=== PATIENT | male | born 1980 | race Caucasian/White ===

== ENCOUNTER 2022-10-08 10:30 | Inpatient (IN) | payer BC ==
[~2022-10-08] VITALS: Ht 170.2 cm; Wt 93.0 kg
--- NOTE | 2022-10-08 10:35 | NUR ---
Patient came in to the er c/o chest pain while sitting at work. On room air, breathing evenly and unlabored. Connected to the monitor and pulse ox. Kept comfortable, will continue to monitor accordingly.
[2022-10-08] MEDS ORDERED: IV NS 0.9% 1,000 ML BAG IV ONE (11:30)
[2022-10-08] MEDS ORDERED: IV NS 0.9% 250 ML IV ONE ×2 (11:31→14:10)
[2022-10-08] MEDS ORDERED: IOHEXOL-350 100 ML VIAL IV ONE ×2 (11:31→14:10)
[2022-10-08] MEDS ORDERED: CT SWABBABLE VALVE TRANS SET 1 EA INFUS.SET MC ONE (11:31)
[2022-10-08 11:41] LABS: MONOCYTES % (AUTO) 5.3 % (2.0-12.0)
[2022-10-08 11:57] LABS: CALCIUM, SERUM 7.8 mg/dL (8.5-10.1); CARBON DIOXIDE 18 mmol/L (21-32); CHLORIDE 91 mmol/L (98-107); CREATININE 1.6 mg/dL (0.6-1.3); GLUCOSE 243 mg/dL (74-106); POTASSIUM 3.2 mmol/L (3.5-5.1); SODIUM SERUM 129 mmol/L (136-145); UREA NITROGEN, BLOOD 18 mg/dL (7-18)
[2022-10-08] MEDS ORDERED: ONDANSETRON HCL/PF - ER 4 MG/2 ML VIAL IV ONE (12:00)
[2022-10-08] MEDS ORDERED: MORPHINE SULFATE INJ 2 MG/ML DISP.SYRIN IV ONE (12:00)
[2022-10-08] MEDS ORDERED: ONDANSETRON HCL/PF 4 MG/2 ML VIAL ONE (12:05)
[2022-10-08] MEDS ORDERED: MORPHINE SULFATE INJ 4 MG/ML DISP.SYRIN ONE (12:05)
[2022-10-08 12:10] LABS: BASOPHILS % (AUTO) 0.1 % (0.0-2.0); EOSINOPHILS % (AUTO) 0.1 % (0.0-6.0); HEMATOCRIT 46 % (39-51); HEMOGLOBIN 15.9 g/dL (13.5-17.5); LYMPHOCYTES # (AUTO) 0.4 K/uL (0.8-4.8); LYMPHOCYTES % (AUTO) 2.8 % (20.0-44.0); MEAN CORPUSCULAR HGB CONC 34 g/dl (31.0-36.0); MEAN CORPUSCULAR VOLUME 92 fL (80-96); MONOCYTES # (AUTO) 0.7 K/uL (0.1-1.30); NEUTROPHILS # (AUTO) 12.6 K/uL (1.8-8.9); NEUTROPHILS % (AUTO) 91.7 % (43.0-81.0); PLATELET COUNT (AUTO) 153 K/uL (150-450); RED BLOOD CELL COUNT(AUTO) 5.02 MIL/uL (4.5-6.0); WHITE BLOOD COUNT (AUTO) 13.7 K/uL (4.3-11.0)
--- NOTE | 2022-10-08 12:11 | NUR ---
wheeled patient to ct
[2022-10-08] MEDS ORDERED: IV PREMIX NS + 40 MEQ KCL 1 L IV PRN (12:30)
[2022-10-08] MEDS ORDERED: INSULIN REGULAR, HUMAN 100 UNITS in IV NS 0.9% 100 ML IV PRN ×2 (12:30)
[2022-10-08 12:43] LABS: ABG BASE EXCESS -2.3 mmol/L; ABG PCO2 26.1 mmHg (35.0-45.0); ABG PH 7.477 (7.350-7.450); ABG PO2 76.7 mmHg (75.0-100.0); COHb 0.3 % (0.5-1.5); MetHb 0.6 % (0.0-1.5); O2Hb 95.3 % (94.0-97.0); SITE, ABG Left Radial; VENT MODE, BG ROOM AIR
--- NOTE | 2022-10-08 12:54 | NUR ---
covid swab collected and sent to lab.
[2022-10-08] MEDS ORDERED: ALPR2TAB7 PO (13:02)
[2022-10-08] MEDS ORDERED: MIRT-91 PO (13:02)
[2022-10-08] MEDS ORDERED: DISU250T7 PO (13:02)
[2022-10-08] MEDS ORDERED: BREX1TAB PO (13:02)
[2022-10-08 13:37] LABS: CALCIUM, SERUM 6.9 mg/dL (8.5-10.1); CREATININE 1.3 mg/dL (0.6-1.3); MAGNESIUM 1.7 mg/dL (1.8-2.4); PHOSPHORUS 1.7 mg/dL (2.5-4.9); POTASSIUM 3.8 mmol/L (3.5-5.1)
[2022-10-08 15:22] LABS: CALCIUM, SERUM 6.2 mg/dL (8.5-10.1); CREATININE 1.5 mg/dL (0.6-1.3); MAGNESIUM 1.6 mg/dL (1.8-2.4); PHOSPHORUS 1.5 mg/dL (2.5-4.9); POTASSIUM 3.9 mmol/L (3.5-5.1)
--- NOTE | 2022-10-08 15:25 | NUR ---
room 262
[2022-10-08] MEDS ORDERED: Magnesium 1GM/D5W 100ML PREMIX 200 ML IV ONE (16:04)
[2022-10-08] MEDS: Magnesium 1GM/D5W 100ML PREMIX 100 ML IV SCH ×2 (16:09→17:40)
[2022-10-08] MEDS ORDERED: DEXTROSE 50%-WATER 50 ML DISP.SYRIN IV PRN (16:30)
[2022-10-08] MEDS ORDERED: ONDANSETRON HCL/PF 4 MG/2 ML VIAL IVP PRN (16:30)
[2022-10-08] MEDS ORDERED: Sodium Phosphate 30 MMOL in IV NS 0.9% 250 ML IV SCH (17:00)
--- NOTE | 2022-10-08 17:31 | NUR ---
GOT BED 313-2
[2022-10-08] MEDS: BLOOD SUGAR DIAGNOSTIC 1 EACH STRIP IN SCH ×2 (18:00→23:41)
[2022-10-08 18:24] LABS: CALCIUM, SERUM 6.8 mg/dL (8.5-10.1); CREATININE 1.4 mg/dL (0.6-1.3); MAGNESIUM 2.3 mg/dL (1.8-2.4); PHOSPHORUS 1.6 mg/dL (2.5-4.9); POTASSIUM 4.4 mmol/L (3.5-5.1)
--- NOTE | 2022-10-08 18:30 | NUR ---
wheeled patient via gurney accompanied by RN and emt in no distress. RN assigned at [facility] to assume care.
--- NOTE | 2022-10-08 19:20 | NUR ---
ADMISSION 42 y/o male Alert Oriented x4. Skin checked done, skin intact. GAY midline intact. [place] to room, unit, staff. Abdomen rounded, soft, reports pain tolerable at this time. Will cont to monitor.
[2022-10-08 20:00] VITALS: BP 130/97
[2022-10-08] MEDS: MORPHINE SULFATE INJ 2 MG/ML DISP.SYRIN IV SCH ×2 (20:19→21:00)
--- NOTE | 2022-10-08 21:53 | NUR ---
ACCU CHECK AT 1800 Received patient after 1900. Will check bld glucose at 0000.
[2022-10-08] MEDS: IV NS 0.9% 1,000 ML IV PRN (22:12)
--- NOTE | 2022-10-08 22:20 | NUR ---
MORPHINE IV NON ADMINISTERED 2100 morphine dose non administered, dose too close from last administration at 2018. Patient no c/o pain at this time,
[2022-10-08] MEDS: INSULIN REGULAR, HUMAN 100 UNIT/ML 3 ML VIAL SQ PRN (23:46)
--- NOTE | 2022-10-08 23:47 | NUR ---
ACCU CHECK Bld glucose 174mg/dl.Given insulin per SS parameters co-signed by FERNANDO Johnston.
[2022-10-09] MEDS: MORPHINE SULFATE INJ 2 MG/ML DISP.SYRIN IV SCH
--- NOTE | 2022-10-09 01:05 | NUR ---
NEW ORDER PAIN MEDICATION Patient on Morphine IV q3H routine, was given once for abdomen pain in the last 5 hours. Patient reports no pain at this time, pain tolerable. Notified [facility] LAB TECHNICIAN Renny with new order Morphine IV q3H PRN, dc routine dose.
[2022-10-09] MEDS: IV NS 0.9% 1,000 ML IV PRN ×3 (02:28→15:29)
[2022-10-09] MEDS: MORPHINE SULFATE INJ 2 MG/ML DISP.SYRIN IV PRN ×5 (03:26→22:22)
--- NOTE | 2022-10-09 03:27 | NUR ---
ABDOMEN PAIN Patient ambulated to the bathroom, voided urine. Back to bed, c/o abdomen pain 07/10. Denies N/V. Given IV Morphine, will reassess pain level.
[2022-10-09] MEDS: INSULIN REGULAR, HUMAN 100 UNIT/ML 3 ML VIAL SQ PRN ×3 (06:01→22:13)
[2022-10-09] MEDS: BLOOD SUGAR DIAGNOSTIC 1 EACH STRIP IN SCH ×4 (06:02→22:15)
--- NOTE | 2022-10-09 06:03 | NUR ---
ACCU CHECK Bld glucose 171mg/dl.Given insulin per SS parameters co-signed by FERNANDO Johnston.
[2022-10-09 06:34] LABS: BASOPHILS % (AUTO) 0.1 % (0.0-2.0); EOSINOPHILS % (AUTO) 0.1 % (0.0-6.0); HEMATOCRIT 48 % (39-51); HEMOGLOBIN 16.3 g/dL (13.5-17.5); LYMPHOCYTES # (AUTO) 0.7 K/uL (0.8-4.8); LYMPHOCYTES % (AUTO) 5.6 % (20.0-44.0); MEAN CORPUSCULAR HGB CONC 34 g/dl (31.0-36.0); MEAN CORPUSCULAR VOLUME 94 fL (80-96); MONOCYTES # (AUTO) 0.7 K/uL (0.1-1.30); MONOCYTES % (AUTO) 4.9 % (2.0-12.0); NEUTROPHILS # (AUTO) 11.9 K/uL (1.8-8.9); NEUTROPHILS % (AUTO) 89.3 % (43.0-81.0); PLATELET COUNT (AUTO) 161 K/uL (150-450); RED BLOOD CELL COUNT(AUTO) 5.11 MIL/uL (4.5-6.0); WHITE BLOOD COUNT (AUTO) 13.3 K/uL (4.3-11.0)
--- NOTE | 2022-10-09 06:38 | NUR ---
END OF SHIT REPORT Patient in bed, Alert Oriented x4. NPO. On IVF infusing. Afebrile throughout shift. Abdomen pain controlled with IV Morphine, denies N/V. Independent with ambulation. Stable on RA. Will endorse to oncoming RN.
[2022-10-09 06:46] LABS: CARBON DIOXIDE 18 mmol/L (21-32); CHLORIDE 102 mmol/L (98-107); GLUCOSE 150 mg/dL (74-106); MAGNESIUM 2.1 mg/dL (1.8-2.4); PHOSPHORUS 1.4 mg/dL (2.5-4.9); POTASSIUM 3.9 mmol/L (3.5-5.1); SODIUM SERUM 133 mmol/L (136-145); UREA NITROGEN, BLOOD 23 mg/dL (7-18)
[2022-10-09 07:00] VITALS: BP 161/107
[2022-10-09 07:09] LABS: CALCIUM, SERUM 5.5 mg/dL (8.5-10.1)
--- NOTE | 2022-10-09 07:15 | NUR ---
CRITICAL VALUE 0709 May/lab reported Critical value Calcium 5.5. Endorse to FERNANDO Sweeney, f/u with am team.
--- NOTE | 2022-10-09 07:27 | NUR ---
MS RN OPENING NOTE RECEIVED PT AWAKE AND RESTING IN BED. PT A/O X4, ABLE TO MAKE NEEDS KNOWN. ON ROOM AIR, TOLERATING WELL. NO SOB NOTED. NOT IN ANY SIGN OF RESPIRATORY DISTRESS. IV ACCESS IN GAY MIDLINE INTACT AND PATENT WITH NS INFUSING AT 250ML/HR. SAFETY MEASURES IN PLACE: BED IN LOWEST AND LOCKED POSITION, SIDE RAILS UPX2, AND CALL LIGHT WITHIN REACH. WILL CONTINUE TO MONITOR PT.
--- NOTE | 2022-10-09 07:35 | NUR ---
RN NOTE NIGHT NURSE FERNANDO MEADE ENDORSED OF CRITICAL LAB VALUE OF CALCIUM LEVEL OF 5.5. CALLED DR. ADITYA BROOKS AND LEFT MESSAGE. AWAITING FOR A CALL BACK.
--- NOTE | 2022-10-09 07:45 | NUR ---
RN NOTE RECEIVED A CALL BACK FROM DR. BROKOS IN REGARDS TO CRITICAL VALUE OF CALCIUM 5.5 WITH ORDERS TO GIVE CALCIUM GLUCONATE 2GM IV. ORDERS CARRIED OUT.
[2022-10-09] MEDS ORDERED: Calcium Gluconate 1GM/10ML 9.3 MEQ in IV NS 0.9% 100 ML IV ONE (08:00)
[2022-10-09] MEDS: PANTOPRAZOLE 40 MG VIAL IV SCH (08:18)
[2022-10-09] MEDS ORDERED: Calcium Gluconate 0.465 MEQ/ML VIAL IV SCH (08:30)
[2022-10-09 10:32] LABS: LIPASE > 1000 U/L (73-393)
[2022-10-09] MEDS ORDERED: Sodium Phosphate 30 MMOL in IV NS 0.9% 250 ML IV SCH (11:00)
[2022-10-09 13:07] LABS: HDL CHOLESTEROL 21 mg/dL (40-60); LDL 55 mg/dL (0-99); TRIGLYCERIDES 350 mg/dL (30-150)
--- NOTE | 2022-10-09 13:07 | NUR ---
RN NOTE PT WAS SEEN BY DR. BROOKS WITH NEW ORDER TO DC CURRENT DIET ORDER AND START PT ON CLEAR LIQUID DIET. ORDERS CARRIED OUT.
[2022-10-09 15:54] LABS: CHOLESTEROL 140 mg/dL (<200)
[2022-10-09 16:40] LABS: BAND % (MANUAL) 7 % (0.0-5.0); BASOPHILS % (MANUAL) 0 % (0.0-2.0); EOSINOPHILS % (MANUAL) 0 % (0-4); LYMPHOCYTES % (MANUAL) 9 % (16-48); MONOCYTES % (MANUAL) 3 % (0-11.0); NEUTROPHILS % (MANUAL) 81 (42-76)
--- NOTE | 2022-10-09 17:45 | NUR ---
RN NOTE RECEIVED AN ORDER FROM DR. BROOKS TO DC PREVIOUS INSULIN SLIDING SCALE AND ACCUCHECK NPO AND CHANGED TO MILD SLIDING SCALE ACHS. ORDERS CARRIED OUT.
--- NOTE | 2022-10-09 17:50 | NUR ---
RN NOTE ACCUCHECK CHECKED PRIOR TO CHANGE IN SLIDING SCALE. PT'S BS IS 151 MG/DL. PT HAS A 2 UNITS PER SLIDING SCALE ORDERED, BUT PT REFUSED INSULIN COVERAGE AT THIS TIME. EXPLAINED RISK AND BENEFITS STILL STRONGLY REFUSED.
[2022-10-09] MEDS ORDERED: DEXTROSE 50%-WATER 50 ML DISP.SYRIN IV PRN (18:30)
--- NOTE | 2022-10-09 19:30 | NUR ---
MS RN OPENING NOTE RECEIVED PT AWAKE AND RESTING IN BED. PT A/O X4, ABLE TO MAKE NEEDS KNOWN. ON ROOM AIR, TOLERATING ROOM AIR WELL. NO SOB NOTED. NO S/S OF RESPIRATORY DISTRESS SEEN. LEFT UA MIDLINE INTACT AND PATENT WITH NS INFUSING AT 250ML/HR. SAFETY MEASURES IN PLACE: BED IN LOWEST AND LOCKED POSITION, SIDE RAILS UP X2, AND CALL LIGHT WITHIN REACH. WILL CONTINUE TO MONITOR PT.
--- NOTE | 2022-10-09 19:46 | NUR ---
MS RN CLOSING NOTE PT AWAKE AND RESTING IN BED. PT A/O X4, ABLE TO MAKE NEEDS KNOWN. ON ROOM AIR, TOLERATING WELL. NO SOB NOTED. NOT IN ANY SIGN OF RESPIRATORY DISTRESS. IV ACCESS IN GAY MIDLINE INTACT AND PATENT WITH NS INFUSING AT 250ML/HR. ALL NEEDS ATTENDED. KEPT CLEAN AND COMFORTABLE. SAFETY MEASURES IN PLACE: BED IN LOWEST AND LOCKED POSITION, SIDE RAILS UPX2, AND CALL LIGHT WITHIN REACH. ENDORSED TO [employer]OU[employer]ARF[employer] ANALYST NURSE FOR ROBERTO.
[2022-10-09 20:03] VITALS: BP 142/80
[2022-10-10] MEDS: IV NS 0.9% 1,000 ML IV PRN (02:41)
[2022-10-10] MEDS: MORPHINE SULFATE INJ 2 MG/ML DISP.SYRIN IV PRN ×3 (05:58→13:59)
[2022-10-10] MEDS: BLOOD SUGAR DIAGNOSTIC 1 EACH STRIP IN SCH ×2 (06:23→11:50)
[2022-10-10] MEDS: INSULIN REGULAR, HUMAN 100 UNIT/ML 3 ML VIAL SQ PRN ×2 (06:26→11:52)
[2022-10-10 06:40] LABS: CREATININE 0.8 mg/dL (0.6-1.3); POTASSIUM 3.1 mmol/L (3.5-5.1)
--- NOTE | 2022-10-10 07:00 | NUR ---
MS RN NOTE LAB CALLED TO REPORT THAT PT'S CA LEVEL IS 5.2. WILL ENDORSE TO AM SHIFT NURSE MADYSON
[2022-10-10 07:05] LABS: CALCIUM, SERUM 5.2 mg/dL (8.5-10.1)
--- NOTE | 2022-10-10 07:20 | NUR ---
MS RN CLOSING NOTE LEFT PT AWAKE AND RESTING IN BED. PT A/O X4, ABLE TO MAKE NEEDS KNOWN. ON ROOM AIR, TOLERATING RA WELL. NO SOB NOTED. NO S/S OF RESPIRATORY DISTRESS. LEFT UA MIDLINE INTACT AND PATENT WITH NS INFUSING AT 250ML/HR. ALL NEEDS ATTENDED. SAFETY MEASURES IN PLACE: BED IN LOWEST AND LOCKED POSITION, SIDE RAILS UPX2, AND CALL LIGHT WITHIN REACH. ENDORSED TO AM SHIFT NURSE FOR ROBERTO.
--- NOTE | 2022-10-10 07:30 | NUR ---
MS RN OPENING NOTE RECEIVED PT AWAKE, A/O X4, ABLE TO MAKE NEEDS KNOWN. ON ROOM AIR, TOLERATING ROOM AIR WELL WITHOUT SOB NOTED. NO S/S OF RESPIRATORY DISTRESS NOR ANY APPARENT DISTRESS NOTED. LEFT UA MIDLINE INTACT AND PATENT WITH NS INFUSING AT 250ML/HR. SAFETY MEASURES IN PLACE: BED IN LOWEST AND LOCKED POSITION, SIDE RAILS UP X2, AND CALL LIGHT AND TRAY TABLE WITHIN REACH. WILL CONTINUE TO PT.
[2022-10-10 08:22] VITALS: BP 120/78
[2022-10-10] MEDS: PANTOPRAZOLE 40 MG VIAL IV SCH (08:44)
[2022-10-10] MEDS: POTASSIUM CL. PREMIX PERIPHER. 50 ML IV SCH ×4 (08:44→13:32)
[2022-10-10] MEDS ORDERED: CALCIUM CARBONATE 500 MG TAB.CHEW PO SCH (13:30)
--- NOTE | 2022-10-10 16:00 | NUR ---
MS [employer] CABLE SPLICER NOTE PT DISCHARGED TO HOME IN STABLE CONDITION. PT A/OX4, ABLE TO MAKE NEEDS KNOWN. ON ROOM AIR, STABLE, BREATHING EVEN AND UNLABORED. NO SOB NOTED. VITAL SIGNS TAKEN, STABLE AND RECORDED. PT'S SKIN IS INTACT, BRUISING NOTED ON UPPER EXTREMITIES NOTED. PATIENT DENIES PAIN OR DISCOMFORT AT THIS TIME. ALL BELONGINGS ACCOUNTED FOR. DISCHARGE INSTRUCTIONS GIVEN TO PATIENT. PATIENT REMOVED HIS LEFT UPPER ARM MIDLINE HIMSELF, HE SAID IT WAS DONE ACCIDENTALLY. SITE IS NOT BLEEDING ACTIVELY. PT LEFT THE UNIT AT 1555, AMBULATORY, ACCOMPANIED PT TO THE LOBBY. MD AND CHARGE NURSE AWARE OF THE DISCHARGE.
[2022-10-11] MEDS ORDERED: PANTOPRAZOLE 40 MG/PACK PACK PO SCH (09:00)
== END 2022-10-10 16:12 | disposition home or self-care (01) | DRG 439 ==
LOC: ER 10:34 → ICU 15:42 → TRANSITION 15:55 → MED 17:31
PROC: 05HA33Z Insertion of Infusion Device into Left Brachial Vein, Percutaneous Approach (ICD-10-PCS; principal; 2022-10-08)
DX: K85.20 Alcohol induced acute pancreatitis without necrosis or infection (principal); E87.1 Hypo-osmolality and hyponatremia; R65.10 Systemic inflammatory response syndrome (SIRS) of non-infectious origin without acute organ dysfunction; E87.20 Acidosis, unspecified; E11.65 Type 2 diabetes mellitus with hyperglycemia; E83.42 Hypomagnesemia; E83.39 Other disorders of phosphorus metabolism; E83.51 Hypocalcemia; Z79.899 Other long term (current) drug therapy; K76.0 Fatty (change of) liver, not elsewhere classified; E87.6 Hypokalemia; Z20.822 Contact with and (suspected) exposure to COVID-19; K82.8 Other specified diseases of gallbladder; E88.09 Other disorders of plasma-protein metabolism, not elsewhere classified; K80.20 Calculus of gallbladder without cholecystitis without obstruction
CPT/HCPCS: 36415; 36600; 71045-TC; 76705-TC; 80048-TC; 80061-TC; 82803-TC; 82962-TC; 83690-TC; 83735-TC; 83880; 84100-TC; 84484-TC; 85025-TC; 85378-TC; 87081-TC; A9563; C9113; C9803; G0378; J0610; J1815; J2270; J2405; J3475; J3480; J3490; J7030; J7042; J7050; Q9967